=== PATIENT | female | born 1945 | race Hispanic/Latino ===

== ENCOUNTER → 2020-11-29 | Emergency (ER) | payer MEDICARE ==
[~2020-11-29] VITALS: Ht 154.9 cm; Wt 68.0 kg
[~2020-11-29] MED LIST: CASIRIVIMAB/IMDEVIMAB 10 ML in SODIUM CHLORIDE 0.9% 100 ML IV ONE; GABAPENTIN300 MG PO; NEXIUM40 MG PO; ULTRAM50 MG PO; Z.0.CO-GESIC 5-5001 PO; Z.0.FUROSEMIDE40 MG PO; Z.0.LASIX40 MG PO; Z.0.LISINOPRIL40 MG PO; Z.0.NORVASC5 MG PO; Z.0.ONDANSETRON HCL4 PO; Z.0.PRAVACHOL20 MG PO
== END | disposition home or self-care (01) ==
LOC: ER 10:59
DX: U07.1 COVID-19 (principal); R05.9 Cough, unspecified; I10 Essential (primary) hypertension; I50.9 Heart failure, unspecified; E78.5 Hyperlipidemia, unspecified
CPT/HCPCS: 99283; J7050